=== PATIENT | female | born 1985 | race Caucasian/White ===

== ENCOUNTER 2016-10-30 18:34 | Emergency (ER) | payer MEDICAID ==
[~2016-10-30] VITALS: Ht 160 cm; Wt 70.0 kg
[~2016-10-30 18:34] MED LIST: CEFTIN500 MG PO; CIPRO 500MG TA500 MG PO; CLEOCIN VAGINAL40 GM VG; CRANBERRY1 CAP PO; DIFLUCAN150 MG PO; DOXYCYCLINE 10100 MG PO; FLAGYL500 MG PO; IBUPROFEN400 MG PO; LORTAB 5/500 501 TAB PO; MACROBID 1100 MG/CAP PO; MEDROL 4MG DOSPA4 MG PO; METROCREAM CREA45 GM TP; METROGEL-VAGINA0.75% VG; METRONIDAZOLE500 MG PO; NAPROSYN500 MG PO; NO HOME MEDICATIONS; NORCO 325 MG-51 TAB PO; PENICILLIN V500 MG PO; PYRIDIATE100 MG PO; PYRIDIUM200 MG PO; TRIAMCINOLONE0.1% TP; ZOFRAN 4MG T4 MG/TAB PO; ZOVIRAX 200MG200 MG PO
[2016-10-30 18:40] VITALS: TEMP 99.1
[2016-10-30 19:19] LABS: BASO % 0.2 % (0.0-2.0); EOS # 0.1 (0.0-0.7); EOS % 0.8 % (0-4.0); GRAN # 7.6 (1.4-6.5); GRAN % 85.3 % (42.2-75.2); HEMATOCRIT 42.3 % (37.0-47.0); HEMOGLOBIN 14.6 g/dl (12.5-16.0); LYMPH # 0.7 (1.2-3.4); MEAN CELL VOLUME 89 fl (80.0-100.0); MEAN CORPUSCULAR HEMOGLOBIN 31 pg (27.0-31.0); MEAN CORPUSCULAR HGB CONC 35 g/dl (33.0-37.0); MEAN PLATELET VOLUME 9.9 fl (7.4-10.4); MONO # 0.5 (0.1-0.6); MONO % 5.5 % (1.7-9.3); PLATELET COUNT 222 K/mm3 (130-400); RED BLOOD COUNT 4.76 M/mm3 (4.10-5.30); REDCELL DISTRIBUTION WIDTH-CV 12.3 % (11.5-14.5); WHITE BLOOD COUNT 8.9 K/mm3 (4.8-10.8)
[2016-10-30 19:29] LABS: PH 5 (5-8); URINE APPEARANCE Clear; URINE BACTERIA None Seen /hpf; URINE BILIRUBIN Negative (NEGATIVE); URINE BLOOD Negative (NEGATIVE); URINE COLOR Yellow; URINE GLUCOSE Negative (NEGATIVE); URINE KETONE Negative (NEGATIVE); URINE RBC 0-2 /hpf; URINE WBC 0-2 /hpf
[2016-10-30 19:32] LABS: ADJUSTED CALCIUM 8.6 mg/dL (8.4-10.2); ALBUMIN 4.2 gm/dL (3.5-5.0); BILIRUBIN,TOTAL 2.1 mg/dL (0.0-1.0); CALCIUM 8.8 mg/dL (8.4-10.2); CREATININE, serum 0.84 mg/dL (0.52-1.25); POTASSIUM 3.5 mmol/L (3.4-5.0); TOTAL PROTEIN 7.5 gm/dL (6.4-8.2)
[2016-10-30 22:08] VITALS: BP 98/65; PULSE 67
== END 2016-10-30 22:08 | disposition home or self-care (01) ==
LOC: COL.ER 18:34
PROVIDERS: Emergency Medicine
DX: R10.11 Right upper quadrant pain (principal)
CPT/HCPCS: J2405; J7030; Q9967

== ENCOUNTER 2017-01-09 10:56 | Emergency (ER) | payer MEDICAID ==
[~2017-01-09] VITALS: Ht 160 cm; Wt 69.5 kg
[2017-01-09 11:00] VITALS: BP 100/68; TEMP 97.8
[2017-01-09] MEDS ORDERED: VIIBRYD10 MG PO (11:03)
[2017-01-09] MEDS ORDERED: MINIPRESS 1M1 MG/CAP PO (11:04)
[2017-01-09 12:18] LABS: PH 7 (5-8); SQUAMOUS EPITHELIAL 0-2 /hpf; URINE APPEARANCE Clear; URINE BACTERIA None Seen /hpf; URINE BILIRUBIN Negative (NEGATIVE); URINE BLOOD Negative (NEGATIVE); URINE COLOR Yellow; URINE GLUCOSE Negative (NEGATIVE); URINE KETONE Negative (NEGATIVE); URINE RBC None Seen /hpf; URINE UROBILINOGEN Negative (NEGATIVE)
[2017-01-09 12:24] LABS: URINE WBC None Seen /hpf
[2017-01-09] MEDS ORDERED: FLEXERIL 1010 MG/TAB PO (13:15)
[2017-01-09] MEDS ORDERED: ROXICODONE 55 MG/TAB PO (13:15)
[2017-01-09 13:21] VITALS: PULSE 65
== END 2017-01-09 13:22 | disposition home or self-care (01) ==
LOC: COL.ER 10:56
PROVIDERS: Nurse Practitioner
DX: M54.5 Low back pain (principal); F32.9 Major depressive disorder, single episode, unspecified; F43.10 Post-traumatic stress disorder, unspecified; Z87.891 Personal history of nicotine dependence
CPT/HCPCS: J1885; J2360

== ENCOUNTER 2017-03-21 12:16 | Emergency (ER) | payer MEDICAID ==
[~2017-03-21] VITALS: Ht 160 cm; Wt 68.6 kg
[~2017-03-21 12:16] MED LIST changes: +FLEXERIL 1010 MG/TAB PO; +MINIPRESS 1M1 MG/CAP PO; +ROXICODONE 55 MG/TAB PO; +VIIBRYD10 MG PO
[2017-03-21 12:23] VITALS: TEMP 98.6
[2017-03-21] MEDS ORDERED: PROZAC 20MG20 MG PO (12:27)
[2017-03-21 13:38] LABS: BASO % 0.4 % (0.0-2.0); EOS # 0.1 (0.0-0.7); EOS % 1.4 % (0-4.0); GRAN # 3.4 (1.4-6.5); GRAN % 58.8 % (42.2-75.2); HEMATOCRIT 42.1 % (37.0-47.0); HEMOGLOBIN 14.5 g/dl (12.5-16.0); LYMPH # 1.8 (1.2-3.4); LYMPH % 32.2 % (20.0-51.0); MEAN CELL VOLUME 88 fl (80.0-100.0); MEAN CORPUSCULAR HEMOGLOBIN 30 pg (27.0-31.0); MEAN CORPUSCULAR HGB CONC 34 g/dl (33.0-37.0); MONO # 0.4 (0.1-0.6); PLATELET COUNT 226 K/mm3 (130-400); RED BLOOD COUNT 4.77 M/mm3 (4.10-5.30); REDCELL DISTRIBUTION WIDTH-CV 12.2 % (11.5-14.5); WHITE BLOOD COUNT 5.7 K/mm3 (4.8-10.8)
[2017-03-21 13:39] LABS: PH 6 (5-8); SQUAMOUS EPITHELIAL 0-2 /hpf; URINE APPEARANCE Clear; URINE BACTERIA None Seen /hpf; URINE BILIRUBIN Negative (NEGATIVE); URINE BLOOD Negative (NEGATIVE); URINE COLOR Straw; URINE GLUCOSE Negative (NEGATIVE); URINE KETONE Negative (NEGATIVE); URINE RBC 0-2 /hpf; URINE UROBILINOGEN Negative (NEGATIVE); URINE WBC 0-2 /hpf
[2017-03-21 13:42] LABS: ADJUSTED CALCIUM 8.9 mg/dL (8.4-10.2); ALBUMIN 4.4 gm/dL (3.5-5.0); CALCIUM 9.2 mg/dL (8.4-10.2); CREATININE, serum 0.79 mg/dL (0.52-1.25); POTASSIUM 3.9 mmol/L (3.4-5.0); TOTAL PROTEIN 7.1 gm/dL (6.4-8.2)
[2017-03-21 14:39] VITALS: BP 92/66; PULSE 60
== END 2017-03-21 14:38 | disposition home or self-care (01) ==
LOC: COL.ER 12:16
PROVIDERS: Physician Assistant Medical
DX: R10.84 Generalized abdominal pain (principal); F99 Mental disorder, not otherwise specified

== ENCOUNTER → 2017-05-03 | Outpatient (CLI) | payer MEDICAID ==
[~2017-05-03] MED LIST changes: +PROZAC 20MG20 MG PO
== END ==
LOC: COL.RAD 09:14
DX: R19.7 Diarrhea, unspecified (principal); R11.2 Nausea with vomiting, unspecified; K25.7 Chronic gastric ulcer without hemorrhage or perforation; R10.9 Unspecified abdominal pain

== ENCOUNTER → 2017-05-23 | Outpatient (CLI) | payer MEDICAID | LOC: COL.RAD 12:01 | DX: R19.7 Diarrhea, unspecified (principal); R11.2 Nausea with vomiting, unspecified; R10.9 Unspecified abdominal pain | CPT/HCPCS: A9537 ==

== ENCOUNTER 2018-12-26 12:05 | Emergency (ER) | payer MEDICAID ==
[~2018-12-26] VITALS: Ht 165.1 cm; Wt 59.1 kg
[2018-12-26 12:08] VITALS: TEMP 97.5
[2018-12-26 12:42] LABS: BASO % 0.5 % (0.0-2.0); EOS # 0.1 (0.0-0.7); EOS % 1.2 % (0-4.0); GRAN # 4.1 (1.4-6.5); GRAN % 69.4 % (42.2-75.2); HEMATOCRIT 41.8 % (37.0-47.0); HEMOGLOBIN 14.5 g/dl (12.5-16.0); LYMPH # 1.4 (1.2-3.4); MEAN CELL VOLUME 91 fl (80.0-100.0); MEAN CORPUSCULAR HEMOGLOBIN 32 pg (27.0-31.0); MEAN CORPUSCULAR HGB CONC 35 g/dl (33.0-37.0); MEAN PLATELET VOLUME 9.9 fl (7.4-10.4); MONO # 0.3 (0.1-0.6); MONO % 5.7 % (1.7-9.3); PLATELET COUNT 252 K/mm3 (130-400); RED BLOOD COUNT 4.58 M/mm3 (4.10-5.30); REDCELL DISTRIBUTION WIDTH-CV 12.2 % (11.5-14.5)
[2018-12-26 13:39] VITALS: BP 111/82; PULSE 70
== END 2018-12-26 13:40 | disposition home or self-care (01) ==
LOC: COL.ER 12:05
PROVIDERS: Emergency Medicine
DX: R07.89 Other chest pain (principal)

== ENCOUNTER → 2019-06-04 | Outpatient (CLI) | payer MEDICAID ==
[2019-06-04 12:44] LABS: HEMATOCRIT 44.1 % (37.0-47.0); MEAN CELL VOLUME 92 fl (80.0-100.0); MEAN CORPUSCULAR HEMOGLOBIN 31 pg (27.0-31.0); MEAN CORPUSCULAR HGB CONC 34 g/dl (33.0-37.0); MEAN PLATELET VOLUME 9.9 fl (7.4-10.4); PLATELET COUNT 258 K/mm3 (130-400); REDCELL DISTRIBUTION WIDTH-CV 12.1 % (11.5-14.5)
[2019-06-04 12:58] LABS: ALBUMIN 4.6 gm/dL (3.5-5.0); BILIRUBIN,TOTAL 1.2 mg/dL (0.0-1.0); CALCIUM 9.2 mg/dL (8.4-10.2); CREATININE, serum 0.8 (0.52-1.25); TOTAL PROTEIN 7.6 gm/dL (6.4-8.2)
[2019-06-04 13:27] LABS: THYROID STIMULATING HORMONE 0.431 uIU/mL (0.465-4.680)
[2019-06-04 23:53] LABS: DHEA (SULFATE) 308 mcg/dL (96-512); TESTOSTERONE, TOTAL 38 ng/dL (14-53)
== END ==
LOC: COL.LAB 12:21
PROVIDERS: Specialist
DX: R53.83 Other fatigue (principal); L68.0 Hirsutism

== ENCOUNTER → 2019-06-11 | Outpatient (CLI) | payer MEDICAID ==
[2019-06-17 07:13] LABS: OVA AND PARASITE XXX; TRICHROME STAIN XXX
== END ==
LOC: COL.LAB 15:19
DX: R19.5 Other fecal abnormalities (principal); R11.2 Nausea with vomiting, unspecified; R10.9 Unspecified abdominal pain; R19.7 Diarrhea, unspecified

== ENCOUNTER 2019-06-13 06:03 | Day surgery (SDC) | payer MEDICAID ==
[~2019-06-13] VITALS: Ht 160 cm; Wt 61.7 kg
[2019-06-13 06:52] VITALS: BP 108/78; PULSE 56; TEMP 97.7
[2019-06-13 07:50] VITALS: BP 108/55; PULSE 61; TEMP 97.6
--- NOTE | 2019-06-13 07:50 | NUR ---
Patient brought back to [facility] [place] [address] via cart. Ambulated to chair without difficulty. Placed on monitors, vital signs stable. Patient denies any nausea or pain. Mother at bedside. States she would like toast and sprite. Will continue to monitor.
[2019-06-13 08:10] VITALS: BP 100/78; PULSE 53
--- NOTE | 2019-06-13 08:10 | NUR ---
Patient ambulated to bathroom without difficulty. Denies any nausea. Vital signs stable. Will continue to monitor.
[2019-06-13 08:25] VITALS: BP 104/79; PULSE 50
--- NOTE | 2019-06-13 08:25 | NUR ---
Patient tolerating food and drink without difficulty. Denies nausea or vommiting. Will continue to monitor.
--- NOTE | 2019-06-13 08:45 | NUR ---
Discharge instructions reviewed with patient, all questions answered. Brought down to lobby via wheelchair. To be driven home by mother.
== END 2019-06-13 08:48 | disposition home or self-care (01) ==
LOC: SDCO 06:03
DX: K92.1 Melena (principal); K59.00 Constipation, unspecified; R19.7 Diarrhea, unspecified; K64.0 First degree hemorrhoids; R11.2 Nausea with vomiting, unspecified; F41.9 Anxiety disorder, unspecified; K25.7 Chronic gastric ulcer without hemorrhage or perforation; F32.9 Major depressive disorder, single episode, unspecified; K21.9 Gastro-esophageal reflux disease without esophagitis; Z88.1 Allergy status to other antibiotic agents; Z88.5 Allergy status to narcotic agent; Z88.6 Allergy status to analgesic agent; Z87.891 Personal history of nicotine dependence
CPT/HCPCS: J2704; J7030

== ENCOUNTER 2019-10-26 16:29 | Emergency (ER) | payer MEDICAID ==
[~2019-10-26] VITALS: Ht 160 cm; Wt 63.6 kg
[2019-10-26 16:32] VITALS: BP 125/84; TEMP 99.1
[2019-10-26] MEDS ORDERED: TURMERIC500 MG (16:41)
[2019-10-26] MEDS ORDERED: TOPAMAX 25MG25 M1 PO (16:41)
[2019-10-26] MEDS ORDERED: MULTIPLE VITAMI1 CAP PO (16:41)
[2019-10-26] MEDS ORDERED: elderberry gummy PO (16:42)
[2019-10-26 17:01] LABS: COLLECTION METHOD CLEAN CATCH
[2019-10-26 17:06] LABS: PH 5 (5-8); SQUAMOUS EPITHELIAL None Seen /hpf; URINE APPEARANCE Clear; URINE BACTERIA None Seen /hpf; URINE BILIRUBIN Negative (NEGATIVE); URINE BLOOD Negative (NEGATIVE); URINE COLOR Straw; URINE GLUCOSE Negative (NEGATIVE); URINE KETONE Negative (NEGATIVE); URINE LEUKOCYTE ESTERASE Negative (NEGATIVE); URINE NITRATE Negative (NEGATIVE); URINE PROTEIN(semi-quant) Negative (NEGATIVE); URINE RBC None Seen /hpf; URINE UROBILINOGEN Negative (NEGATIVE)
[2019-10-26 18:03] VITALS: PULSE 71
== END 2019-10-26 18:03 | disposition home or self-care (01) ==
LOC: COL.ER 16:29
PROVIDERS: Nurse Practitioner Primary Care
DX: T36.8X5A Adverse effect of other systemic antibiotics, initial encounter (principal); R21 Rash and other nonspecific skin eruption

== ENCOUNTER 2019-12-04 12:50 | Emergency (ER) | payer MEDICAID ==
[~2019-12-04] VITALS: Ht 160 cm; Wt 63.6 kg
[~2019-12-04 12:50] MED LIST changes: +MULTIPLE VITAMI1 CAP PO; +TOPAMAX 25MG25 M1 PO; +TURMERIC500 MG; +elderberry gummy PO
[2019-12-04 13:27] LABS: COLLECTION METHOD CLEAN CATCH
[2019-12-04 13:44] LABS: PH 7 (5-8); SQUAMOUS EPITHELIAL 0-2 /hpf; URINE APPEARANCE Clear; URINE BACTERIA Rare /hpf; URINE BILIRUBIN Negative (NEGATIVE); URINE BLOOD 1+ (NEGATIVE); URINE COLOR Straw; URINE GLUCOSE Negative (NEGATIVE); URINE KETONE Negative (NEGATIVE); URINE LEUKOCYTE ESTERASE Negative (NEGATIVE); URINE NITRATE Negative (NEGATIVE); URINE PROTEIN(semi-quant) Negative (NEGATIVE); URINE UROBILINOGEN Negative (NEGATIVE)
[2019-12-04] MEDS ORDERED: MACROBID 1100 MG/CAP PO (13:56)
[2019-12-04 14:00] VITALS: BP 114/65; PULSE 73; TEMP 98.2
== END 2019-12-04 14:00 | disposition home or self-care (01) ==
LOC: COL.ER 12:50
PROVIDERS: Nurse Practitioner Primary Care
DX: N30.90 Cystitis, unspecified without hematuria (principal)

== ENCOUNTER 2019-12-08 16:19 | Emergency (ER) | payer MEDICAID ==
[~2019-12-08] VITALS: Ht 160 cm; Wt 63.6 kg
[2019-12-08 16:32] VITALS: TEMP 98.2
[2019-12-08 17:38] LABS: COLLECTION METHOD CLEAN CATCH
[2019-12-08 17:51] LABS: MUCOUS Present /lpf; PH 5 (5-8); SQUAMOUS EPITHELIAL 0-2 /hpf; URINE APPEARANCE Clear; URINE BACTERIA None Seen /hpf; URINE BILIRUBIN Negative (NEGATIVE); URINE BLOOD Negative (NEGATIVE); URINE COLOR Yellow; URINE GLUCOSE Negative (NEGATIVE); URINE KETONE Negative (NEGATIVE); URINE LEUKOCYTE ESTERASE Negative (NEGATIVE); URINE NITRATE Negative (NEGATIVE); URINE PROTEIN(semi-quant) Negative (NEGATIVE); URINE RBC 0-2 /hpf; URINE UROBILINOGEN Negative (NEGATIVE)
[2019-12-08 17:53] VITALS: BP 99/65
[2019-12-08] MEDS ORDERED: TINDAMAX 500MG500 M1 PO (19:03)
[2019-12-08 19:19] VITALS: PULSE 62
== END 2019-12-08 19:21 | disposition home or self-care (01) ==
LOC: COL.ER 16:19
PROVIDERS: Emergency Medicine
DX: N76.0 Acute vaginitis (principal); F32.9 Major depressive disorder, single episode, unspecified; Z87.891 Personal history of nicotine dependence; Z88.5 Allergy status to narcotic agent; Z88.1 Allergy status to other antibiotic agents

== ENCOUNTER 2020-01-07 18:45 | Emergency (ER) | payer MEDICAID ==
[~2020-01-07] VITALS: Ht 160 cm; Wt 64.5 kg
[~2020-01-07 18:45] MED LIST changes: +TINDAMAX 500MG500 M1 PO
[2020-01-07 18:47] VITALS: BP 104/71; TEMP 97.8
[2020-01-07 19:22] LABS: COLLECTION METHOD CLEAN CATCH
[2020-01-07 19:29] LABS: PH 7 (5-8); SQUAMOUS EPITHELIAL 0-2 /hpf; URINE APPEARANCE Clear; URINE BACTERIA None Seen /hpf; URINE BILIRUBIN Negative (NEGATIVE); URINE BLOOD Negative (NEGATIVE); URINE COLOR Colorless; URINE GLUCOSE Negative (NEGATIVE); URINE KETONE Negative (NEGATIVE); URINE LEUKOCYTE ESTERASE Negative (NEGATIVE); URINE NITRATE Negative (NEGATIVE); URINE PROTEIN(semi-quant) Negative (NEGATIVE); URINE RBC 0-2 /hpf; URINE UROBILINOGEN Negative (NEGATIVE)
[2020-01-07 20:38] VITALS: PULSE 76
== END 2020-01-07 20:38 | disposition home or self-care (01) ==
LOC: COL.ER 18:45
PROVIDERS: Nurse Practitioner
DX: N89.8 Other specified noninflammatory disorders of vagina (principal); F32.9 Major depressive disorder, single episode, unspecified; F17.210 Nicotine dependence, cigarettes, uncomplicated

== ENCOUNTER 2020-02-23 18:06 | Emergency (ER) | payer MEDICAID ==
[~2020-02-23] VITALS: Ht 160 cm; Wt 64.1 kg
[2020-02-23 18:24] VITALS: BP 105/69; TEMP 98.7
[2020-02-23 18:42] LABS: COLLECTION METHOD CLEAN CATCH
[2020-02-23 18:48] LABS: PH 6 (5-8); SQUAMOUS EPITHELIAL 0-2 /hpf; URINE APPEARANCE Clear; URINE BACTERIA None Seen /hpf; URINE BILIRUBIN Negative (NEGATIVE); URINE BLOOD 3+ (NEGATIVE); URINE COLOR Straw; URINE GLUCOSE Negative (NEGATIVE); URINE KETONE Negative (NEGATIVE); URINE LEUKOCYTE ESTERASE Negative (NEGATIVE); URINE NITRATE Negative (NEGATIVE); URINE PROTEIN(semi-quant) Negative (NEGATIVE); URINE RBC 0-2 /hpf; URINE UROBILINOGEN Negative (NEGATIVE)
[2020-02-23 19:41] VITALS: PULSE 70
== END 2020-02-23 19:40 | disposition home or self-care (01) ==
LOC: COL.ER 18:06
PROVIDERS: Physician Assistant
DX: N93.9 Abnormal uterine and vaginal bleeding, unspecified (principal); E28.2 Polycystic ovarian syndrome

== ENCOUNTER 2020-03-12 12:53 | Emergency (ER) | payer MEDICAID ==
[~2020-03-12] VITALS: Ht 160 cm; Wt 64.1 kg
[2020-03-12 13:03] VITALS: BP 101/66; TEMP 97.9
[2020-03-12] MEDS ORDERED: KLONOPIN 0.5MG0.5 MG PO (13:06)
[2020-03-12] MEDS ORDERED: CEPHALEXIN500 M1 PO (13:42)
[2020-03-12] MEDS ORDERED: BACTRIM DS 8001 TAB PO (13:42)
[2020-03-12 14:02] VITALS: PULSE 59
== END 2020-03-12 14:02 | disposition home or self-care (01) ==
LOC: COL.ER 12:53
DX: S00.86XA Insect bite (nonvenomous) of other part of head, initial encounter (principal); Z88.6 Allergy status to analgesic agent; W57.XXXA Bitten or stung by nonvenomous insect and other nonvenomous arthropods, initial encounter

== ENCOUNTER 2021-07-04 12:28 | Emergency (ER) | payer MEDICAID ==
[~2021-07-04] VITALS: Ht 160 cm; Wt 65.0 kg
[~2021-07-04 12:28] MED LIST changes: +BACTRIM DS 8001 TAB PO; +CEPHALEXIN500 M1 PO; +KLONOPIN 0.5MG0.5 MG PO
[2021-07-04 12:59] VITALS: TEMP 98.3
[2021-07-04 13:58] LABS: COLLECTION METHOD CLEAN CATCH
[2021-07-04 14:06] LABS: PH 7 (5-8); SQUAMOUS EPITHELIAL 0-2 /hpf; URINE APPEARANCE Clear; URINE BACTERIA Rare /hpf; URINE BILIRUBIN Negative (NEGATIVE); URINE BLOOD Negative (NEGATIVE); URINE COLOR Straw; URINE GLUCOSE Negative (NEGATIVE); URINE KETONE Negative (NEGATIVE); URINE LEUKOCYTE ESTERASE Negative (NEGATIVE); URINE NITRATE Negative (NEGATIVE); URINE PROTEIN(semi-quant) Negative (NEGATIVE); URINE RBC 0-2 /hpf; URINE UROBILINOGEN Negative (NEGATIVE)
[2021-07-04] MEDS ORDERED: METROGEL-VAGINA0.75% VG (14:42)
[2021-07-04 14:55] VITALS: BP 114/75; PULSE 64
[2021-07-04] MEDS ORDERED: ZITHROMAX 250M250 MG PO (16:01)
== END 2021-07-04 14:55 | disposition home or self-care (01) ==
LOC: COL.ER 12:28
PROVIDERS: Nurse Practitioner Primary Care
DX: A56.02 Chlamydial vulvovaginitis (principal)

== ENCOUNTER 2021-08-10 16:21 | Emergency (ER) | payer MEDICAID ==
[~2021-08-10] VITALS: Ht 160 cm; Wt 66.7 kg
[~2021-08-10 16:21] MED LIST changes: +ZITHROMAX 250M250 MG PO
[2021-08-10 16:29] VITALS: TEMP 97.8
[2021-08-10 17:00] LABS: COLLECTION METHOD CLEAN CATCH
[2021-08-10 17:07] LABS: MUCOUS Present (NOT PRESENT); PH 6 (5-8); URINE APPEARANCE Hazy (CLEAR/HAZY); URINE BACTERIA Rare /hpf (NONE SEEN); URINE BILIRUBIN Negative (NEGATIVE); URINE BLOOD 3+ (NEGATIVE); URINE COLOR Yellow (YELLOW); URINE GLUCOSE Negative (NEGATIVE); URINE KETONE Negative (NEGATIVE); URINE LEUKOCYTE ESTERASE Negative (NEGATIVE); URINE NITRATE Negative (NEGATIVE); URINE PROTEIN(semi-quant) Negative (NEGATIVE); URINE UROBILINOGEN Negative (NEGATIVE)
[2021-08-10 18:00] VITALS: BP 120/91; PULSE 80
== END 2021-08-10 18:05 | disposition home or self-care (01) ==
LOC: COL.ER 16:21
PROVIDERS: Student in an Organized Health Care Education/Training Program
DX: N99.820 Postprocedural hemorrhage of a genitourinary system organ or structure following a genitourinary system procedure (principal); Z90.710 Acquired absence of both cervix and uterus

== ENCOUNTER 2021-09-17 12:16 | Emergency (ER) | payer MEDICAID ==
[~2021-09-17] VITALS: Ht 160 cm; Wt 67.3 kg
[2021-09-17 12:24] VITALS: TEMP 98.1
[2021-09-17 12:32] LABS: COLLECTION METHOD CLEAN CATCH
[2021-09-17 12:41] LABS: PH 6 (5-8); URINE APPEARANCE Clear (CLEAR/HAZY); URINE BACTERIA Rare /hpf (NONE SEEN); URINE BILIRUBIN Negative (NEGATIVE); URINE BLOOD Negative (NEGATIVE); URINE COLOR Yellow (YELLOW); URINE GLUCOSE Negative (NEGATIVE); URINE KETONE Negative (NEGATIVE); URINE LEUKOCYTE ESTERASE 1+ (NEGATIVE); URINE NITRATE Negative (NEGATIVE); URINE PROTEIN(semi-quant) Negative (NEGATIVE); URINE RBC 0-2 /hpf (0-2); URINE UROBILINOGEN Negative (NEGATIVE)
[2021-09-17 14:48] VITALS: BP 110/84; PULSE 78
== END 2021-09-17 14:49 | disposition home or self-care (01) ==
LOC: COL.ER 12:16
PROVIDERS: Nurse Practitioner
DX: N89.8 Other specified noninflammatory disorders of vagina (principal)

== ENCOUNTER 2021-09-19 14:52 | Emergency (ER) | payer MEDICAID ==
[~2021-09-19] VITALS: Ht 160 cm; Wt 67.3 kg
[2021-09-19 14:59] VITALS: BP 108/83; PULSE 74; TEMP 98.5
[2021-09-19] MEDS ORDERED: TOPAMAX 25MG25 M1 PO (15:22)
[2021-09-19 16:01] LABS: COLLECTION METHOD CLEAN CATCH
[2021-09-19 16:07] LABS: PH 7 (5-8); SQUAMOUS EPITHELIAL 0-2 /hpf (0-10); URINE APPEARANCE Clear (CLEAR/HAZY); URINE BACTERIA None Seen /hpf (NONE SEEN); URINE BILIRUBIN Negative (NEGATIVE); URINE BLOOD Negative (NEGATIVE); URINE COLOR Straw (YELLOW); URINE GLUCOSE Negative (NEGATIVE); URINE KETONE Negative (NEGATIVE); URINE LEUKOCYTE ESTERASE Negative (NEGATIVE); URINE NITRATE Negative (NEGATIVE); URINE PROTEIN(semi-quant) Negative (NEGATIVE); URINE RBC 0-2 /hpf (0-2); URINE UROBILINOGEN Negative (NEGATIVE)
== END 2021-09-19 16:36 | disposition home or self-care (01) ==
LOC: COL.ER 14:52
PROVIDERS: Nurse Practitioner Primary Care
DX: N89.8 Other specified noninflammatory disorders of vagina (principal)

== ENCOUNTER 2021-12-19 17:13 | Emergency (ER) | payer MEDICAID ==
[~2021-12-19] VITALS: Ht 160 cm; Wt 66.4 kg
[2021-12-19 17:29] VITALS: TEMP 98.6
[2021-12-19 17:36] LABS: COLLECTION METHOD CLEAN CATCH
[2021-12-19 18:07] LABS: AMORPHOUS CRYSTAL Present (NOT PRESENT); PH 7 (5-8); URINE APPEARANCE Cloudy (CLEAR/HAZY); URINE BACTERIA None Seen /hpf (NONE SEEN); URINE BILIRUBIN Negative (NEGATIVE); URINE BLOOD Negative (NEGATIVE); URINE COLOR Yellow (YELLOW); URINE GLUCOSE Negative (NEGATIVE); URINE KETONE Negative (NEGATIVE); URINE LEUKOCYTE ESTERASE Negative (NEGATIVE); URINE NITRATE Negative (NEGATIVE); URINE PROTEIN(semi-quant) Negative (NEGATIVE); URINE RBC 0-2 /hpf (0-2); URINE UROBILINOGEN Negative (NEGATIVE)
[2021-12-19 18:15] LABS: BASO % 0.5 % (0.0-2.0); EOS # 0.1 K/mm3 (0.0-0.7); EOS % 1.8 % (0.0-4.0); GRAN # 4.9 K/mm3 (1.4-6.5); GRAN % 62.6 % (42.2-75.2); HEMATOCRIT 43.8 % (37.0-47.0); HEMOGLOBIN 14.9 g/dl (12.5-16.0); LYMPH # 2.2 K/mm3 (1.2-3.4); MEAN CELL VOLUME 90 fl (80.0-100.0); MEAN CORPUSCULAR HEMOGLOBIN 31 pg (27-31); MEAN CORPUSCULAR HGB CONC 34 g/dl (33.0-37.0); MEAN PLATELET VOLUME 9.8 fl (7.4-10.4); MONO # 0.6 K/mm3 (0.1-0.6); PLATELET COUNT 272 K/mm3 (130-400); RED BLOOD COUNT 4.87 M/mm3 (4.10-5.30); REDCELL DISTRIBUTION WIDTH-CV 12.2 % (11.5-14.5)
[2021-12-19 18:38] LABS: ALBUMIN 4.2 gm/dL (3.5-5.0); C-REACTIVE PROTEIN 0.07 mg/dL (0.00-0.50); CALCIUM 8.5 mg/dL (8.4-10.2); CREATININE, serum 0.95 mg/dL (0.57-1.11); POTASSIUM 3.7 mmol/L (3.5-4.5); TOTAL PROTEIN 6.7 gm/dL (6.2-8.1)
[2021-12-19 19:30] VITALS: BP 154/80; PULSE 76
== END 2021-12-19 22:57 | disposition home or self-care (01) ==
LOC: COL.ER 17:13
PROVIDERS: Emergency Medicine; Nurse Practitioner
DX: R10.9 Unspecified abdominal pain (principal); R11.0 Nausea; F17.210 Nicotine dependence, cigarettes, uncomplicated
CPT/HCPCS: J1885; J2405; J7030

== ENCOUNTER 2022-02-09 20:15 | Emergency (ER) | payer MEDICAID ==
[~2022-02-09] VITALS: Ht 160 cm; Wt 65.0 kg
[2022-02-09 20:31] VITALS: BP 111/78; TEMP 98.4
[2022-02-09] MEDS ORDERED: PREDNISONE20 MG PO (21:11)
[2022-02-09 21:20] VITALS: PULSE 77
== END 2022-02-09 21:20 | disposition home or self-care (01) ==
LOC: COL.ER 20:15
DX: R21 Rash and other nonspecific skin eruption (principal); Z28.310 Unvaccinated for COVID-19
CPT/HCPCS: J7512

== ENCOUNTER 2022-02-19 13:14 | Emergency (ER) | payer MEDICAID ==
[~2022-02-19] VITALS: Ht 160 cm; Wt 65.0 kg
[~2022-02-19 13:14] MED LIST changes: +PREDNISONE20 MG PO
[2022-02-19 13:24] VITALS: TEMP 98.2
[2022-02-19 13:50] LABS: COLLECTION METHOD CLEAN CATCH
[2022-02-19 13:57] LABS: MUCOUS Present (NOT PRESENT); PH 8 (5-8); URINE APPEARANCE Clear (CLEAR/HAZY); URINE BACTERIA None Seen /hpf (NONE SEEN); URINE BILIRUBIN Negative (NEGATIVE); URINE BLOOD Negative (NEGATIVE); URINE COLOR Yellow (YELLOW); URINE GLUCOSE Negative (NEGATIVE); URINE KETONE Negative (NEGATIVE); URINE LEUKOCYTE ESTERASE Negative (NEGATIVE); URINE NITRATE Negative (NEGATIVE); URINE PROTEIN(semi-quant) Negative (NEGATIVE); URINE RBC 0-2 /hpf (0-2); URINE UROBILINOGEN Negative (NEGATIVE)
[2022-02-19] MEDS ORDERED: FLAGYL500 MG PO (14:52)
[2022-02-19 15:20] VITALS: BP 117/78; PULSE 62
== END 2022-02-19 15:29 | disposition home or self-care (01) ==
LOC: COL.ER 13:14
PROVIDERS: Physician Assistant
DX: A56.02 Chlamydial vulvovaginitis (principal); A54.02 Gonococcal vulvovaginitis, unspecified; Z28.310 Unvaccinated for COVID-19
CPT/HCPCS: J0696